=== PATIENT | female | born 1985 ===

== ENCOUNTER 2016-09-24 14:30 | Outpatient (RCR) | payer BC | END 2016-10-19 | disposition home or self-care (01) | LOC: WCC 14:30 | DX: T86.821 Skin graft (allograft) (autograft) failure (principal); C50.411 Malignant neoplasm of upper-outer quadrant of right female breast | CPT/HCPCS: G0277; G0463; 99204 ==

== ENCOUNTER 2016-10-20 17:16 | Outpatient (RCR) | payer BC | END 2016-11-19 | disposition home or self-care (01) | LOC: WCC 17:16 | DX: Z53.9 Procedure and treatment not carried out, unspecified reason (principal) ==